=== PATIENT | female | born 1945 | race Caucasian/White ===

== ENCOUNTER → 2016-10-13 | Outpatient (CLI) | payer OTHER | LOC: FIMAGING 13:12 | PROVIDERS: ATTEND Surgery | DX: R22.1 Localized swelling, mass and lump, neck (principal) ==

== ENCOUNTER → 2016-11-21 | Outpatient (CLI) | payer OTHER | LOC: FIMAGING 11:13 | PROVIDERS: ATTEND Internal Medicine | DX: M81.0 Age-related osteoporosis without current pathological fracture (principal); Z78.0 Asymptomatic menopausal state ==

== ENCOUNTER → 2017-04-13 | Outpatient (CLI) | payer OTHER | LOC: FIMAGING 15:02 | PROVIDERS: ATTEND Internal Medicine | DX: Z12.31 Encounter for screening mammogram for malignant neoplasm of breast (principal) | CPT/HCPCS: G0202 ==

== ENCOUNTER → 2018-02-04 | Outpatient (CLI) | payer OTHER ==
[~2018-02-04] MED LIST: IOPAMIDOL (ISOVUE-300) 100 ML BTL ONE
== END ==
LOC: CIMAGING 10:30
PROVIDERS: ATTEND Internal Medicine
DX: N20.0 Calculus of kidney (principal); N13.30 Unspecified hydronephrosis; K44.9 Diaphragmatic hernia without obstruction or gangrene; K76.89 Other specified diseases of liver; I70.0 Atherosclerosis of aorta
CPT/HCPCS: 74178; Q9967; 82565-PO

== ENCOUNTER → 2018-04-02 | Outpatient (CLI) | payer OTHER | LOC: BRMIMAGING 10:53 | PROVIDERS: ATTEND Urology | DX: N13.4 Hydroureter (principal) | CPT/HCPCS: 76770-PO ==

== ENCOUNTER → 2018-04-16 | Outpatient (CLI) | payer OTHER | LOC: FIMAGING 10:43 | PROVIDERS: ATTEND Internal Medicine | DX: Z12.31 Encounter for screening mammogram for malignant neoplasm of breast (principal) ==

== ENCOUNTER → 2018-05-08 | Outpatient (CLI) | payer OTHER | LOC: BRMIMAGING 10:49 | PROVIDERS: ATTEND Urology | DX: N13.30 Unspecified hydronephrosis (principal) | CPT/HCPCS: 76770-PO ==

== ENCOUNTER → 2018-07-18 | Outpatient (CLI) | payer OTHER ==
[~2018-07-18] MED LIST changes: +FUROSEMIDE 40 MG/4 ML VIAL ONE; -IOPAMIDOL (ISOVUE-300) 100 ML BTL ONE
== END ==
LOC: FIMAGING 10:46
PROVIDERS: ATTEND Urology
DX: N20.0 Calculus of kidney (principal)
CPT/HCPCS: 78708; A9562; J1940